=== PATIENT | female | born 1980 ===

== ENCOUNTER 2023-11-19 05:00 | Day surgery (SDC) | payer OTHER ==
[2023-11-19] MEDS ORDERED: MEPERIDINE HCL/PF 50 MG/ML VIAL IV ONE (08:00)
[2023-11-19] MEDS ORDERED: DIPHENHYDRAMINE HCL 50 MG/ML VIAL 1ML IV ONE (08:00)
[2023-11-19] MEDS ORDERED: MIDAZOLAM HCL/PF 5 MG/ML VIAL IV ONE (08:00)
[2023-11-19] MEDS ORDERED: ENALAPRILAT DIHYDRATE 1.25 MG/ML VIAL IV ONE ×3 (09:30→10:15)
== END 2023-11-19 10:50 | disposition home or self-care (01) ==
LOC: AMB-ENDOS 05:00 → CIR.AMB 14:15
PROVIDERS: ATTEND Surgery
DX: K29.60 Other gastritis without bleeding (principal); R10.13 Epigastric pain; K44.9 Diaphragmatic hernia without obstruction or gangrene; E66.01 Morbid (severe) obesity due to excess calories; Z88.2 Allergy status to sulfonamides